=== PATIENT | female | born 1985 | race African-American/Black ===

== ENCOUNTER 2020-01-12 15:34 | Emergency (ER) | payer OTHER ==
[~2020-01-12] VITALS: Ht 165.1 cm; Wt 86.2 kg
[~2020-01-12 15:34] MED LIST: ALBUTEROL INH; CHLORTHALIDONE25 MG PO; NORCO 5-325 TA1 EACH PO; PREDNISONE50 MG PO; PRENATAL 19 CH1 EAC1 PO; PROAIR HFA8.5 GM IH; ZPAK PO
[2020-01-12 15:56] LABS: URINE BILIRUBIN NEGATIVE (Negative); URINE BLOOD 1+ (Negative); URINE CLARITY CLEAR; URINE COLOR YELLOW; URINE GLUCOSE-RANDOM* NEGATIVE (Negative); URINE KETONES NEGATIVE (Negative); URINE LEUKOCYTES-REFLEX TRACE (Negative); URINE NITRITE-REFLEX NEGATIVE (Negative); URINE PROTEIN (DIPSTICK) NEGATIVE (Negative); URINE SPECIFIC GRAVITY 1.025 (1.005-1.035)
[2020-01-12 16:04] LABS: BACTERIA-REFLEX None Seen /HPF (None Seen); CASTS None Seen /LPF (None Seen); CRYSTALS None Seen /LPF (None Seen); SQUAMOUS 0-3 Few /LPF (0-3)
[2020-01-12 16:05] LABS: URINE WBC-REFLEX None Seen /HPF (0-5)
[2020-01-12] MEDS ORDERED: AZITHROMYCIN 2250 MG PO (17:05)
[2020-01-12 17:17] VITALS: BP 134/78
[2020-01-12] MEDS ORDERED: FERRETTS325 MG PO (18:05)
[2020-01-12] MEDS ORDERED: FOLIXAPURE5000 UNIT PO (18:06)
== END 2020-01-12 17:17 | disposition home or self-care (01) ==
LOC: ER 15:34
PROVIDERS: Physician Assistant
DX: N89.8 Other specified noninflammatory disorders of vagina (principal); J45.909 Unspecified asthma, uncomplicated; E66.9 Obesity, unspecified; Z20.2 Contact with and (suspected) exposure to infections with a predominantly sexual mode of transmission

== ENCOUNTER 2021-03-11 18:25 | Emergency (ER) | payer OTHER ==
[~2021-03-11] VITALS: Ht 165.1 cm; Wt 99.8 kg
[~2021-03-11 18:25] MED LIST changes: +AZITHROMYCIN 2250 MG PO; +FERRETTS325 MG PO; +FOLIXAPURE5000 UNIT PO
[2021-03-11 18:44] VITALS: BP 110/71
[2021-03-11 19:38] LABS: ABSOLUTE NEUTROPHILS 3.9 thou/uL (1.4-8.2); EOSINOPHILS 3.8 % (0.0-3.0); HEMATOCRIT 26.9 % (37.0-47.0); HEMOGLOBIN 8.9 gm/dL (12.0-15.0); LYMPHOCYTES 35.6 % (24.0-44.0); MCH 23.9 pg (26.0-34.0); MCV 72.4 fL (80.0-100.0); PLATELET COUNT 327 thou/uL (150-400); POLYS 52.6 % (36.0-66.0); RBC 3.72 mil/uL (4.20-5.00); RDW 20.4 % (10.5-14.5); WBC 7.3 thou/uL (4.0-11.0)
[2021-03-11 19:49] LABS: ANION GAP 5 mmol/L (7-16); BUN 11 mg/dL (7-18); CALCIUM 7.8 mg/dL (8.5-10.1); CHLORIDE 105 mmol/L (98-107); CO2 29 mmol/L (21-32); CREATININE 0.6 mg/dL (0.6-1.0); GLUCOSE 84 mg/dL (74-106); POTASSIUM 5.5 mmol/L (3.5-5.1); SODIUM 139 mmol/L (136-145)
[2021-03-11 19:59] LABS: ALBUMIN 3.2 g/dL (3.4-5.0); SGOT 60 U/L (15-37); SGPT 69 U/L (14-59); TOTAL BILIRUBIN 0.3 mg/dL (0.2-1.0); TOTAL PROTEIN 7.3 g/dL (6.4-8.2); TROPONIN-I <0.06 ng/mL (<0.06)
[2021-03-12 00:32] LABS: ANISOCYTOSIS 2+; HYPOCHROMASIA 1+; MICROCYTES 1+
--- NOTE | 2021-03-12 07:16 | EKG ---
[place] [address] [address] [facility] [place] [address] ELECTROCARDIOGRAM REPORT Name: NIGEL WHITE [id number] Admission: 03/11/21 Attend Phys: Discharge: 03/11/21 Date of : 85 Report #: [id number] ED Test Date: 2021-03-11 Test Time: 18:34:56 Pat Name: NIGEL WHITE Department: Room: Gender: F [employer] Estimator: unknown : 1985 Requested By: Tino Gatica Order Number: [id number] MD: eGoffrey Van Measurements Intervals [place] Rate: 75 P: 45 LA: 144 QRS: 26 QRSD: 89 T: 23 QT: 369 QTc: 413 Interpretive Statements Sinus rhythm Baseline wander in lead(s) V1 Compared to ECG 10/25/2012 10:17:06 No significant changes Electronically Signed On 03-12-2021 7:15:44 CDT by Geoffrey Van [email or web address] <ELECTRONICALLY SIGNED> By: Geoffrey Van MD, [facility] 03/12/21 0715 1834 1834 Geoffrey Van MD, FACC /EPI
== END 2021-03-11 21:27 | disposition home or self-care (01) ==
LOC: ER 18:25
PROVIDERS: Emergency Medicine
DX: J06.9 Acute upper respiratory infection, unspecified (principal); D64.9 Anemia, unspecified; E87.5 Hyperkalemia; R06.2 Wheezing; E66.9 Obesity, unspecified; Z79.899 Other long term (current) drug therapy; Z20.822 Contact with and (suspected) exposure to COVID-19

== ENCOUNTER 2021-07-04 20:18 | Emergency (ER) | payer OTHER ==
[~2021-07-04] VITALS: Ht 165.1 cm; Wt 99.8 kg
[2021-07-04 21:53] LABS: ABSOLUTE NEUTROPHILS 3.7 thou/uL (1.4-8.2); BASOPHILS 0.7 % (0.0-2.0); EOSINOPHILS 4.7 % (0.0-3.0); HEMATOCRIT 27.9 % (37.0-47.0); HEMOGLOBIN 8.7 gm/dL (12.0-15.0); LYMPHOCYTES 33.5 % (24.0-44.0); MCH 21.5 pg (26.0-34.0); MCV 69.3 fL (80.0-100.0); MONOCYTES 7.3 % (1.0-8.0); PLATELET COUNT 298 thou/uL (150-400); POLYS 53.8 % (36.0-66.0); RBC 4.03 mil/uL (4.20-5.00); RDW 21.9 % (10.5-14.5)
[2021-07-04 22:01] LABS: ANION GAP 6 mmol/L (7-16); BUN 8 mg/dL (7-18); CHLORIDE 106 mmol/L (98-107); CO2 26 mmol/L (21-32); CREATININE 0.7 mg/dL (0.6-1.0); GLUCOSE 94 mg/dL (74-106); POTASSIUM 3.9 mmol/L (3.5-5.1); SODIUM 138 mmol/L (136-145)
[2021-07-04 22:07] LABS: ALBUMIN 3.1 g/dL (3.4-5.0); DIRECT BILIRUBIN < 0.1 mg/dL (<0.1-0.2); LIPASE 110 U/L (73-393); SGOT 53 U/L (15-37); SGPT 91 U/L (30-65); TOTAL BILIRUBIN 0.3 mg/dL (0.2-1.0)
[2021-07-04] MEDS ORDERED: VANCOCIN 125 M125 M1 PO (22:11)
[2021-07-04] MEDS ORDERED: LOMOTIL 2.5-0.01 TAB PO (22:11)
[2021-07-04 22:40] VITALS: BP 126/80
== END 2021-07-04 22:30 | disposition home or self-care (01) ==
LOC: ER 20:18
PROVIDERS: Student in an Organized Health Care Education/Training Program
DX: R19.7 Diarrhea, unspecified (principal); J45.909 Unspecified asthma, uncomplicated; E66.9 Obesity, unspecified; Z68.36 Body mass index [BMI] 36.0-36.9, adult; Z98.890 Other specified postprocedural states; Z90.89 Acquired absence of other organs; Z79.899 Other long term (current) drug therapy

== ENCOUNTER 2021-07-20 09:53 | Emergency (ER) | payer OTHER ==
[~2021-07-20] VITALS: Ht 165.1 cm; Wt 99.8 kg
[~2021-07-20 09:53] MED LIST changes: +LOMOTIL 2.5-0.01 TAB PO; +VANCOCIN 125 M125 M1 PO
[2021-07-20 09:55] VITALS: BP 137/93
[2021-07-20 10:21] LABS: URINE BILIRUBIN NEGATIVE (Negative); URINE BLOOD NEGATIVE (Negative); URINE CLARITY CLEAR; URINE COLOR YELLOW; URINE GLUCOSE-RANDOM* NEGATIVE (Negative); URINE KETONES NEGATIVE (Negative); URINE LEUKOCYTES-REFLEX NEGATIVE (Negative); URINE NITRITE-REFLEX NEGATIVE (Negative); URINE PROTEIN (DIPSTICK) NEGATIVE (Negative); URINE SPECIFIC GRAVITY >= 1.030 (1.005-1.035); URINE UROBILINOGEN 0.2 E.U./dl (0.2-1.0)
[2021-07-20] MEDS ORDERED: METRONIDAZOLE500 M4 PO (11:02)
[2021-07-20] MEDS ORDERED: DIFLUCAN150 MG PO (11:02)
== END 2021-07-20 11:11 | disposition home or self-care (01) ==
LOC: ER 09:53
PROVIDERS: Emergency Medicine
DX: N89.8 Other specified noninflammatory disorders of vagina (principal); J45.909 Unspecified asthma, uncomplicated; E66.9 Obesity, unspecified; Z98.51 Tubal ligation status; Z79.899 Other long term (current) drug therapy; Z90.89 Acquired absence of other organs

== ENCOUNTER 2021-08-29 19:11 | Emergency (ER) | payer OTHER ==
[~2021-08-29] VITALS: Ht 165.1 cm; Wt 97.5 kg
[~2021-08-29 19:11] MED LIST changes: +DIFLUCAN150 MG PO; +METRONIDAZOLE500 M4 PO
[2021-08-29] MEDS ORDERED: PREDNISONE 20 M20 MG PO (20:37)
[2021-08-29] MEDS ORDERED: PROAIR HFA8.5 GM INH (20:37)
[2021-08-29 21:05] VITALS: BP 130/76
== END 2021-08-29 21:05 | disposition home or self-care (01) ==
LOC: ER 19:11
DX: J45.909 Unspecified asthma, uncomplicated (principal); Z20.822 Contact with and (suspected) exposure to COVID-19; E66.01 Morbid (severe) obesity due to excess calories; Z98.890 Other specified postprocedural states; Z90.89 Acquired absence of other organs; Z98.51 Tubal ligation status; Z79.899 Other long term (current) drug therapy; Z68.35 Body mass index [BMI] 35.0-35.9, adult